=== PATIENT | female | born 1960 | race Asian ===

== ENCOUNTER 2023-09-19 06:15 | Day surgery (SDC) | payer OTHER ==
[2023-09-06 16:02] VITALS: BMI 23.8
[~2023-09-19 06:15] MED LIST: LACTATED RINGERS SOLUTION 1,000 ML IV SCH; ONDANSETRON 4 MG/2 ML VIAL IVPUSH PRN; oxyCODONE HCL 5 MG TABLET PO PRN
[2023-09-19] MEDS ORDERED: PHENYLEPHRINE HCL 10 MG/1 ML SINGLE DOSE VIAL ONE (07:04)
[2023-09-19] MEDS ORDERED: DEXAMETHASONE SOD PHOSPHATE 4 MG/1 ML VIAL ONE (07:04)
[2023-09-19] MEDS ORDERED: LIDOCAINE HCL/PF 2% SDV 5ML VIAL ONE (07:04)
[2023-09-19] MEDS ORDERED: ROCURONIUM BROMIDE 50 MG/5 ML SYRINGE ONE (07:04)
[2023-09-19] MEDS ORDERED: MIDAZOLAM HCL 2 MG/2 ML SINGLE DOSE VIAL ONE (07:05)
[2023-09-19] MEDS ORDERED: PROPOFOL 100 ML ONE (07:05)
[2023-09-19] MEDS ORDERED: SUCCINYLCHOLINE CHLORIDE 200 MG/10 ML SYRINGE ONE (07:05)
[2023-09-19] MEDS ORDERED: GENTAMICIN SO4 80 MG/2 ML VIAL ONE (07:22)
[2023-09-19] MEDS ORDERED: BUPIVACAINE HCL/EPINEPHRINE/PF 30 ML VIAL IJ ONE (07:22)
[2023-09-19] MEDS ORDERED: EPINEPHrine/PF 1 MG/1 ML (1:1,000) AMPULE ONE (07:22)
[2023-09-19] MEDS ORDERED: SODIUM BICARBONATE 8.4% 50 MEQ/50 ML VIAL ONE (07:22)
[2023-09-19] MEDS ORDERED: LIDOCAINE HCL 1%, 10 MG/ML (20ML VIAL) ONE (07:22)
[2023-09-19] MEDS ORDERED: ceFAZolin SODIUM 1 GM VIAL ONE (07:22)
[2023-09-19] MEDS ORDERED: BACITRACIN ZINC 15 GM TUBE TOPICAL OINTMENT ONE (07:23)
[2023-09-19] MEDS: BUPIVACAINE 0.25% /EPI 1:200,000 10 ML VIAL NR ONE (08:02)
[2023-09-19] MEDS ORDERED: VANCOMYCIN 1,000 MG VIAL (RESTRICTED TO ID ONLY) ONE (08:03)
[2023-09-19] MEDS ORDERED: ACETAMINOPHEN INJECTION 100 ML IVPB ONE (10:16)
[2023-09-19] MEDS ORDERED: oxyCODONE HCL 5 MG TABLET PO PRN (10:17)
[2023-09-19] MEDS ORDERED: ONDANSETRON 4 MG/2 ML VIAL IVPUSH PRN (10:17)
[2023-09-19] MEDS: ACETAMINOPHEN 1000 MG/100 ML BAG IVPB ONE (10:18)
[2023-09-19] MEDS ORDERED: LACTATED RINGERS SOLUTION 1,000 ML IV SCH (10:30)
[2023-09-19 12:36] VITALS: RESP 16; TEMP 96.8
[2023-09-19 12:41] VITALS: BP 108/62; PULSE 82
== END 2023-09-19 12:20 | disposition home or self-care (01) ==
LOC: FASU 06:15
PROVIDERS: ATTEND Plastic Surgery
PROC: 0HRV0JZ Replacement of Bilateral Breast with Synthetic Substitute, Open Approach (ICD-10-PCS; 2023-09-19)
PROC: 0HRV37Z Replacement of Bilateral Breast with Autologous Tissue Substitute, Percutaneous Approach (ICD-10-PCS; 2023-09-19)
PROC: 0JX60ZB Transfer Chest Subcutaneous Tissue and Fascia with Skin and Subcutaneous Tissue, Open Approach (ICD-10-PCS; 2023-09-19)
PROC: 0JX60ZB Transfer Chest Subcutaneous Tissue and Fascia with Skin and Subcutaneous Tissue, Open Approach (ICD-10-PCS; 2023-09-19)
PROC: 0HPU0JZ Removal of Synthetic Substitute from Left Breast, Open Approach (ICD-10-PCS; principal; 2023-09-19 08:27)
PROC: 0HPT0JZ Removal of Synthetic Substitute from Right Breast, Open Approach (ICD-10-PCS; 2023-09-19 08:27)
DX: Z85.3 Personal history of malignant neoplasm of breast (principal); Z90.13 Acquired absence of bilateral breasts and nipples; N65.0 Deformity of reconstructed breast; T85.44XA Capsular contracture of breast implant, initial encounter; Y82.8 Other medical devices associated with adverse incidents; Y92.9 Unspecified place or not applicable; Y83.1 Surgical operation with implant of artificial internal device as the cause of abnormal reaction of the patient, or of later complication, without mention of misadventure at the time of the procedure
CPT/HCPCS: 14000; 15771; 19342; 19371; L8600; 88300-TC; 88305-TC; 94760; J0131